=== PATIENT | female | born 1980 | race Asian ===

== ENCOUNTER 2018-03-16 13:46 | Emergency (ER) | payer MEDICAID ==
[~2018-03-16] VITALS: Ht 165.1 cm; Wt 57.6 kg
[2018-03-16 14:06] VITALS: Ht 165.1 cm; Wt 57.6 kg
[2018-03-16 16:42] VITALS: BP 108/79
== END 2018-03-16 16:42 | disposition home or self-care (01) ==
LOC: ED 13:46
DX: M79.671 Pain in right foot (principal)

== ENCOUNTER 2018-06-12 17:14 | Inpatient (IN) | payer MEDICAID ==
[~2018-06-12] VITALS: Ht 152.4 cm; Wt 55.8 kg
[2018-06-12 17:16] VITALS: Ht 152.4 cm; Wt 55.8 kg
--- NOTE | 2018-06-12 17:31 | NUR ---
MSE PERFORMED BY DR CONNELL. PT AT BEDSIDE. PT SPEAKS ONLY PERUVIAN-MANDARIN AND STS SHE DISCOVERED CYST TO L SIDE VAGINA AREA YESTERDAY AND STS SHE MEASURED A TEMP OF 38.0 CELSIUS AT HOME. PT REPORTS SYMPTOMS ONLY DISCOVERED YESTERDAY AND HAS SEVERE PAIN WHEN WALKING D/T CYST TO VAG AREA.
[2018-06-12 17:47] LABS: BASOPHIL % 0.2 % (0-2); PLATELET COUNT 337 x10^3mcL (130-400); RED CELL DISTRIBUTION WIDTH 12.1 % (11.5-14.5)
--- NOTE | 2018-06-12 18:00 | NUR ---
PT STS UNABLE TO PROVIDE URINE SAMPLE AT THIS TIME
--- NOTE | 2018-06-12 18:00 | NUR ---
CHAPERONED DR CONNELL DURING EXAM.
[2018-06-12 18:01] LABS: CALCIUM 8.6 mg/dL (8.5-10.1); CARBON DIOXIDE 28.6 mmol/L (21-32); CHLORIDE SERUM 102 mmol/L (98-107); CREATININE SERUM 0.6 mg/dL (0.6-1.0); GFR1 > 60 mL/min; GLUCOSE SERUM 130 mg/dL (74-106); POTASSIUM SERUM 3.1 mmol/L (3.5-5.1); SODIUM SERUM 136 mmol/L (136-145)
[2018-06-12 18:07] LABS: ALBUMIN 3.6 g/dL (3.4-5.0); ALKALINE PHOSPHATASE 143 U/L (46-116); ALT/SGPT 105 U/L (14-59); AST/SGOT 92 U/L (15-37); BILIRUBIN TOTAL 0.57 mg/dL (0.20-1.00); LIPASE 82 IU/L (73-393); TOTAL PROTEIN, SERUM 7.7 g/dL (6.4-8.2)
--- NOTE | 2018-06-12 18:27 | NUR ---
UNABLE TO LOCATE WORD CATH IN ER PYXIS. INFORMED CHARGE MARVIN AND KEYSHA POWELL OF SAME. HOUSE SUP STATES WILL CALL BACK AFTER ATTEMPTING TO FIND ITEM IN [facility]
--- NOTE | 2018-06-12 19:15 | NUR ---
PT HR 120 ON CM AND CONFIRMED WITH APICAL AUSCULTATION. DR CONNELL AWARE AND AT BEDSIDE FOR RE EVAL. HOLD ON KETAMINE DRIP AT THIS TIME
[2018-06-12 19:16] LABS: UA SPECIFIC GRAVITY <=1.005 (1.005-1.035); microscopic required? YES; urine erythrocyte TRACE (NEGATIVE)
--- NOTE | 2018-06-12 19:25 | NUR ---
ATTEMPTING TO PERFORM EKG. PT UNABLE TO REMAIN STILL
--- NOTE | 2018-06-12 19:30 | NUR ---
RECEIVED REPORT FROM JULISSA VILLAGOMEZ AND ASSUMED CARE OF PATIENT. PT. LAYING ON GURNEY. AGITATED AND C/O CHILLS AND FLANK PAIN. DR. CONNELL AT BEDSIDE. ONE LITER OF NS STARTED PER VERBAL ORDERS. WILL CONTINUE TO MONITOR.
--- NOTE | 2018-06-12 19:30 | NUR ---
REPORT GIVEN TO FERNANDO TO ASSUME CARE
--- NOTE | 2018-06-12 19:31 | NUR ---
TYLENOL PO GIVEN, PT. HAD ONE EPISODE OF EMESIS. AFTER TYLENOL GIVEN. DR CONNELL MADE AWARE.
--- NOTE | 2018-06-12 19:32 | NUR ---
SECOND ATTEMPT EKG, PT STILL UNABLE TO REMAIN STILL DESPITE DIRECTION.
--- NOTE | 2018-06-12 19:35 | NUR ---
RECTAL TEMP CHECKED TWICE. INFORMED DR CONNELL OF [facility]
--- NOTE | 2018-06-12 19:36 | NUR ---
DR CONNELL AWARE OF PT HAVING BODY PAIN AND BL FLANK PAIN.
--- NOTE | 2018-06-12 19:45 | NUR ---
PER DR CONNELL TREAT PT FOR POSS MALIGNANT HYPERTHERMIA. DANTROLENE SODIUM BOTTLES OBTAINED FROM OR BY MARVIN LYLE. MYA RADIOLOGY RECEPTIONIST AT BEDSIDE FOR ASSISTANCE
--- NOTE | 2018-06-12 19:46 | NUR ---
INFORMED PT OF POSSIBLE INCR IN FEVER D/T REACTION TO LIDOCAINE ADM. PT AWARE AND VERBALIZED UNDERSTANDING. INFORMED PT OF NEED FOR TREATMENTS
--- NOTE | 2018-06-12 19:50 | NUR ---
ICE PACKS PLACED TO BILATERAL AXILLA AND GROIN AREA.
--- NOTE | 2018-06-12 19:50 | NUR ---
650MG OF TYLENOL GIVEN RECTAL PER DR. CONNELL.
--- NOTE | 2018-06-12 20:00 | NUR ---
COLD BAG OF NS BOLUS STARTED PER DR. CONNELL. PT. TOLERATING WELL
--- NOTE | 2018-06-12 20:01 | NUR ---
LITER OF NS GIVEN BOLUS PER DR. CONNELL.
--- NOTE | 2018-06-12 20:03 | NUR ---
FIRST VIAL DANTROLENE SODIUM 20MG IVP GIVEN RAPID IV PUSH. PT ON FULL MONITORS. REMAINS FULLY AAOX4
--- NOTE | 2018-06-12 20:18 | NUR ---
COOLING BLANKET SET UP FOR PT FOR HIGH TEMPERATURE
--- NOTE | 2018-06-12 20:33 | NUR ---
RAPID BOLUS OF 120MG DANTRIUM GIVEN IVP. INFORMED DR CONNELL OF SAME. RECTAL TEMP NOW 103.5. PER DR CONNELL GIVE DANTRIUM 50MG/KG IVP UNTIL ALLEVIATION OF MH S/S.
--- NOTE | 2018-06-12 20:55 | NUR ---
DANTRIUM 50MG IVP BOLUS INFUSED. RECTAL TEMP NOW 101.9
--- NOTE | 2018-06-12 20:55 | NUR ---
DR CONNELL AWARE OF CURRENT RECTAL TEMP 101.9
--- NOTE | 2018-06-12 21:00 | NUR ---
SECOND BAG OF COLD NS BOLUS STARTED PER DR. CONNELL. PT. TOLERATING WELL.
--- NOTE | 2018-06-12 21:01 | NUR ---
NS LITER GIVEN WIDE OPEN, PER DR. CONNELL.
--- NOTE | 2018-06-12 21:23 | NUR ---
REPORT GIVEN TO MICHAEL GRANGER RN
--- NOTE | 2018-06-12 21:25 | NUR ---
RESIDENT DOT AT BEDSIDE SPEAKING TO PT WITH MY TRANSLATION ASSISTANCE
--- NOTE | 2018-06-12 21:38 | NUR ---
DR CONNELL SPOKE WITH REGARDING POC AND ADMISSION TO ICU FOR MALIGNANT HYPERTHERMIA WITH MY TRANSLATION ASSISTANCE. AWARE OF COOLING MEASURE TREATMENTS
[2018-06-12 21:39] LABS: PLATELET COUNT 165 x10^3mcL (130-400); RED CELL DISTRIBUTION WIDTH 12.2 % (11.5-14.5)
--- NOTE | 2018-06-12 21:45 | NUR ---
50MG OF DANTROLENE IVP GIVEN PER DR. CONNELL VERBAL ORDERS.
--- NOTE | 2018-06-12 21:49 | NUR ---
PER PT SEEMS CONFUSED AND ONLY STATING "I WANT TO GO HOME. I'M TOO COLD." INFORMED DR CONNELL OF SAME. PT REMAINS TO HAVE AN ACTIVE DEC IN TEMPERATURE AND HR.
--- NOTE | 2018-06-12 21:50 | NUR ---
ATTEMPTED TO ASK PT ORIENTATION QUESTIONS, PT ONLY STS TO ME "I'M COLD, AND I WANT TO GO HOME."
--- NOTE | 2018-06-12 21:55 | NUR ---
EXPLAINED TO PT'S WITH DR CONNELL AT BEDSIDE AND INFORMED HIM THAT PT'S CONFUSION IS POSSIBLY PART OF DISEASE PROCESS.
--- NOTE | 2018-06-12 21:56 | NUR ---
DR. BLACKMON MADE AWARE OF PTS WBC OF 1.2, NO NEW ORDERS AT THIS TIME.
[2018-06-12 21:59] LABS: ALKALINE PHOSPHATASE 247 U/L (46-116); ALT/SGPT 125 U/L (14-59); AST/SGOT 130 U/L (15-37); BILIRUBIN TOTAL 1.1 mg/dL (0.20-1.00); CALCIUM 7.1 mg/dL (8.5-10.1); CARBON DIOXIDE 21.7 mmol/L (21-32); CHLORIDE SERUM 108 mmol/L (98-107); CREATININE SERUM 0.5 mg/dL (0.6-1.0); GFR1 > 60 mL/min; GLUCOSE SERUM 119 mg/dL (74-106); LIPASE 99 IU/L (73-393); POTASSIUM SERUM 3.9 mmol/L (3.5-5.1); SODIUM SERUM 140 mmol/L (136-145); TOTAL PROTEIN, SERUM 6.2 g/dL (6.4-8.2)
--- NOTE | 2018-06-12 22:00 | NUR ---
EKG ATTEMPTED MULTIPLE TIMES BY EMT PEPE. PT. UNABLE TO STAY STILL TO HAVE ACCURATE READING DONE. DR. CONNELL MADE AWARE.
[2018-06-12 22:03] LABS: ALBUMIN 2.8 g/dL (3.4-5.0)
[2018-06-12 22:08] LABS: BAND NEUTROPHIL 0 % (0-10); BASOPHIL 0 % (0-2); MONOCYTE 1 % (0-7); PLATELET MORPHOLOGY PLATELETS NORMAL; SEGMENTED NEUTROPHILS 16 % (37-75); rbc morphology (normal/abnorm) NORMAL (NORMAL)
--- NOTE | 2018-06-12 22:10 | NUR ---
EMPTIED 2000ML OF CLEAR YELLOW URINE FROM GRACE CATHETER.
--- NOTE | 2018-06-12 22:15 | NUR ---
PT TRANSFERRED FROM ER VIA [facility] ACCOMPANIED BY RN AND EMT. PT APPEARS LETHARGIC, UNABLE TO FOLLOW COMMANDS. PT DROWSY BUT EASILY AROUSABLE. SPEECH SLOW TO ANSWER. BRITTANY NOTED. PT AND AT BEDSIDE MANDARIN SPEAKING, KARLIE RN AT BEDSIDE TO TRANSLATE. CARMELITA IN PLACE FOR COOLING. VITAL SIGNS UPON ARRIVAL RECTAL TEMP 100.9, BP 140/91 MAP 102, HR 113, RR 15, O2 SAT 100%. RESPS E/U ON O2 2LPM VIA NC. CHEST RISE EQUAL AND SYMMETRICAL. LUNG SOUNDS CTA. PAYROLL LEAD IN PLACE SHOWING ST. DENIES ANY CP, SYNCOPE, OR DIZZINESS. CHEST WALL STABLE. ABD FLAT, SOFT NONTENDER TO TOUCH. BOWEL SOUNDS ACTIVE. F/C INTACT AND DRAINING VIA GRAVITY YELLOW URINE, VOIDING ADEQUATELY. SKIN WARM DRY TO TOUCH. VAGINAL AREA GOLF BALL SIZED LEFT LABIAL BARTHOLIN GLAND ABSCESS NOTED, NO DRAINAGE, NO BLEEDING NOTED TO AREA. IV TO LAC AND RAC INTACT AND PATENT. LR INFUSING @ 250ML/HR. 1ST DOSE OF ZOSYN INITIATED AT THIS TIME PER MD ORDER. GEN WEAKNESS NOTED. REQUIRES MODERATE ASSISTANCE FOR BED MOBILITY. CALL LIGHT WITHIN REACH. WILL CONTINUE TO MONITOR.
--- NOTE | 2018-06-12 22:15 | NUR ---
JULISSA VILLAGOMEZ SPOKE TO MICHAEL VILLAGOMEZ AND STATES ZOSYN AND VANCO WILL BE STARTED TO ICU. DR. CONNELL MADE AWARE AND AGREED WITH PLAN TO HAVE PT. TRANSFERED TO ICU NOW.
--- NOTE | 2018-06-12 22:15 | NUR ---
PT TRANSFERRED FROM ER VIA [facility] ACCOMPANIED BY RN AND EMT. PT APPEARS LETHARGIC, UNABLE TO FOLLOW COMMANDS. PT DROWSY BUT EASILY AROUSABLE. SPEECH SLOW TO ANSWER. BRITTANY NOTED. PT AND AT BEDSIDE MANDARIN SPEAKING, KARLIE RN AT BEDSIDE TO TRANSLATE. CARMELITA IN PLACE FOR COOLING. VITAL SIGNS UPON ARRIVAL RECTAL TEMP 100.9, BP 140/91 MAP 102, HR 113, RR 15, O2 SAT 100%. RESPS E/U ON O2 2LPM VIA NC. CHEST RISE EQUAL AND SYMMETRICAL. LUNG SOUNDS CTA. AOC PLANS INTELLIGENCE OFFICER IN PLACE SHOWING ST. DENIES ANY CP, SYNCOPE, OR DIZZINESS. CHEST WALL STABLE. ABD FLAT, SOFT NONTENDER TO TOUCH. BOWEL SOUNDS ACTIVE. F/C INTACT AND DRAINING VIA GRAVITY YELLOW URINE, VOIDING ADEQUATELY. SKIN WARM DRY TO TOUCH. VAGINAL AREA GOLF BALL SIZED LEFT LABIAL BARTHOLIAN CYST NOTED, NO DRAINAGE, NO BLEEDING NOTED TO AREA. IV TO LAC AND RAC INTACT AND PATENT. LR INFUSING @ 250ML/HR. 1ST DOSE OF ZOSYN INITIATED AT THIS TIME PER MD ORDER. GEN WEAKNESS NOTED. REQUIRES MODERATE ASSISTANCE FOR BED MOBILITY. CALL LIGHT WITHIN REACH. WILL CONTINUE TO MONITOR.
--- NOTE | 2018-06-12 22:20 | NUR ---
PT. TRANSFERED TO ICU RM 5. MICHAEL VILLAGOMEZ ASSUMED CARE OF PATIENT.
[2018-06-12 22:33] VITALS: BP 140/91
--- NOTE | 2018-06-12 22:35 | NUR ---
DR. MIN AT BEDSIDE WITH KARLIE, REGISTERED NURSE SPEAKING WITH FAMILY TO ASSIST TO TRANSLATE AND OBTAIN INFORMATION ON PT AND PLAN OF CARE.
[2018-06-12 22:41] LABS: MAGNESIUM 1.5 mg/dL (1.8-2.4); PHOSPHOROUS 1.5 mg/dL (2.5-4.9)
--- NOTE | 2018-06-12 23:15 | NUR ---
BP 75/46 MAP 59, DR BLACKMON AT BEDSIDE MADE AWARE. REMOVED COOLING BLANKET AT THIS TIME. RECTAL TEMP 100.1 TRENDING DOWN.
--- NOTE | 2018-06-12 23:45 | NUR ---
BP 75/50 MAP 58, REPORTED TO DR BLACKMON BP WITH NO IMPROVMENT, PT PLACED IN [place] POSITION. VERBAL ORDER GIVEN BY DR BLACKMON TO GIVE 1 L NS BOLUS. INFUSING AT THIS TIME.
[2018-06-13] VITALS (7 sets, daily range): BP systolic 80–128; BP diastolic 57–74
--- NOTE | 2018-06-13 01:12 | NUR ---
BP 70/51 MAP 58, 1L BOLUS COMPLETE. REPORTED TO DR BLACKMON, VERBAL ORDER GIVEN TO GIVE ANOTHER X1 BOLUS NOW. 1L NS BOLUS INFUSING AT THIS TIME. WILL CONTINUE TO MONITOR.
--- NOTE | 2018-06-13 02:30 | NUR ---
LACTIC ACID 3.7 AND LOW BP AFTER 2L BOLUS COMPLETED REPORTED TO DR BLACKMON. ORDER FOR GIVEN FOR ANOTHER 1L NS BOLUS. INFUSING AT THIS TIME. LUNG SOUNDS CTA. NO EDEMA NOTED.
--- NOTE | 2018-06-13 02:43 | NUR ---
DR. MIN MADE AWARE OF PT'S CRITICAL LAB LACTIC ACID VALUE OF 3.7, DR. MIN AT NURSING STATION, AWAITING ORDERS.
[2018-06-13 05:28] LABS: RED CELL DISTRIBUTION WIDTH 12.3 % (11.5-14.5)
[2018-06-13 05:36] LABS: PLATELET COUNT 118 x10^3mcL (130-400)
[2018-06-13 05:42] LABS: BAND NEUTROPHIL 11 % (0-10); CHLORIDE SERUM 111 mmol/L (98-107); CREATININE SERUM 0.6 mg/dL (0.6-1.0); GFR1 > 60 mL/min; GLUCOSE SERUM 83 mg/dL (74-106); MAGNESIUM 2.2 mg/dL (1.8-2.4); MONOCYTE 1 % (0-7); PHOSPHOROUS 3.3 mg/dL (2.5-4.9); POTASSIUM SERUM 4.1 mmol/L (3.5-5.1); SEGMENTED NEUTROPHILS 86 % (37-75); SODIUM SERUM 142 mmol/L (136-145)
[2018-06-13 05:45] LABS: PLATELET MORPHOLOGY PLATELETS DECREASED; acanthocyte (spur cell) 1+; rbc morphology (normal/abnorm) ABNORMAL (NORMAL)
--- NOTE | 2018-06-13 06:05 | NUR ---
AM CARE PROVIDED, NO BM NOTED LINENS CHANGED. PT REMAINS FLACCID. OPENS EYES TO TACTILE STIMULI. WITHDRAWS TO PAIN. PERRLA NOTED.
--- NOTE | 2018-06-13 07:16 | NUR ---
REPORT GIVEN BY HERNANDO RODRIGUEZ. ALL QUESTIONS ANSWERED.
--- NOTE | 2018-06-13 07:25 | NUR ---
PAGED REGARDING LACTIC ACID OF 3.0
--- NOTE | 2018-06-13 07:34 | NUR ---
RECEIVED PT'S REPORT FROM LEAVING NURSE. PT'S AT BEDSIDE. US STAFF IS DOING US ABD. PT PRESENT LETHARGIC, NO VERBAL RESPONSE TO AUDITORY STIMULI. BODY WITHDRAWN TO TACTITLE STIMULI. PT BREATHING ON O2 2L VIA NC, EVEN, UNLABORED. GRACE IN PLACE, DRAINING FREELY VIA GRAVITY. URINE COLOR YELLOW. IVF NS INFUSING AT 250ML/HR. EXPLAIN PT'S CONDITION TO HER .
--- NOTE | 2018-06-13 07:38 | NUR ---
REPORT GIVEN TO KYA, ALL QUESTIONS ANSWERED.
--- NOTE | 2018-06-13 08:42 | NUR ---
PT DROWSY, NO EYES OPEN, BUT VERBALLY COMMUNICATED AND SAID SHE IS THIRTY AND WANT TO DRINK WATER.
--- NOTE | 2018-06-13 09:19 | NUR ---
DR. SEVILLA SAW AND TALKED TO PT. PT IS DROWSY BUT ABLE TO ANSWER QUESTIONS SLOWLY. IVF IS REDUCED FROM 250ML/HR TO 200ML/HR PER DR. SEVILLA'S ORDER. INCENTIVE SPIROMETER PROVIDED.
--- NOTE | 2018-06-13 09:37 | NUR ---
DR. ARMAS MADE MORNING ROUND WITH MEDICAL TEAM. PT STILL PRESENT DROWSY, HOWEVER PT IS ABLE TO ANSWER QUESTIONS SLOWLY APPROPRIATELY. WILL CONTINUE CARE PER ORDER.
--- NOTE | 2018-06-13 09:50 | NUR ---
REPORT GIVEN TO CT HERNANDO VAIL, ALL QUESTIONS AND CONCERNS ADDRESSED. PRIMARY RN LING WITH PATIENT TO CT. PT ON CAFE SERVER AND ON 2L NC. PT TAKEN TO CT WITHOUT INCIDENT.
--- NOTE | 2018-06-13 10:30 | NUR ---
ACCOMPANIED PATIENT TO CT FOR IV CONTRAST SCAN OF ABDOMEN AND PELVIS, TRANSPORTED VIA BED, 02 ON AT 2L/NC CONTINUOUSLY, SCOPE NSR 80S EN ROUTE AND DURING SCAN TIME. VERY LETHARGIC. 4 PERSON ASSIST TO TRANSFER USING SLIDER BOARD TO TABLE AND BACK TO BED. PE40=60-55% DURING TRANSPORT AND SCAN TIME. PATIENT'S NURSE ACCOMPANIED AND ASSISTED WITH TRANSLATION. PER PATIENT'S NURSE THERE IS A LABIAL LESION AND CT TECHS NOTIFIED SO THEY WOULD SCAN BELOW PELVIC FLOOR. RETURNED TO ICU UNEVENTFULLY.
--- NOTE | 2018-06-13 10:35 | NUR ---
PT IS BACK FROM CT W. CONTRAST. PT TOLERATE WELL, AND ABLE TO FOLLOW COMMAND. PT'S VS: HR 81, RR26, BP 95/61 (74), TEMP 98.5, O2 SAT 99% AT O2 2L VIA NC.
--- NOTE | 2018-06-13 12:39 | NUR ---
CALLED RADIOLOGY AT THIS TIME REGARDING PENDING CT ABD RESULTS. PER RADIOLOGY DEPARTMENT, WILL BE READ SOON.
--- NOTE | 2018-06-13 13:44 | NUR ---
NOTIFIED OF BLOOD CULTURE RESULTS AND PER DR.SANDHU GABRIELLA GIL AND JESUS.
--- NOTE | 2018-06-13 16:07 | NUR ---
Discount pharmacy card and list to low cost medical clinics given to patient by Tonio.
--- NOTE | 2018-06-13 19:25 | NUR ---
RECEIVED REPORT FROM KYA VILLAGOMEZ. WILL CONTINUE TREATMENT AND CARE PLAN.
--- NOTE | 2018-06-13 20:30 | NUR ---
PT C/O 4/10 L LABIA PAIN AND HAS TEMP OF 99.5. GIVEN TYLENOL 650MG PO. COOLING MEASURES IN PLACE.
--- NOTE | 2018-06-13 23:06 | NUR ---
PT PUT ON BEDPAN AND HAD LARGE SOFT BM. PT CLEANED AND REPOSITIONED FOR COMFORT. NO PAIN AT THIS TIME.
--- NOTE | 2018-06-14 | NUR ---
PT IS NOW NPO AT THIS TIME FOR POSSIBLE PROCEDURE THIS AM.
[2018-06-14 03:07] VITALS: BP 93/54
--- NOTE | 2018-06-14 03:07 | NUR ---
ASSESSED PT. PT STATES NO PAIN AT THIS TIME. PT TEMP NOW 98.5. BREATHING EVEN AND UNLABORED. LUNG SOUNDS CLEAR. NO N/V NOTED. WILL CONTINUE TO MONITOR.
[2018-06-14 05:16] LABS: PLATELET COUNT 149 x10^3mcL (130-400); RED CELL DISTRIBUTION WIDTH 12.9 % (11.5-14.5)
[2018-06-14 05:23] LABS: BASOPHIL % 0 % (0-2)
[2018-06-14 05:28] LABS: CALCIUM 7.8 mg/dL (8.5-10.1); CARBON DIOXIDE 17.4 mmol/L (21-32); CHLORIDE SERUM 108 mmol/L (98-107); CREATININE SERUM 0.3 mg/dL (0.6-1.0); GFR1 > 60 mL/min; GLUCOSE SERUM 112 mg/dL (74-106); MAGNESIUM 1.9 mg/dL (1.8-2.4); PHOSPHOROUS 1.9 mg/dL (2.5-4.9); POTASSIUM SERUM 4.7 mmol/L (3.5-5.1); SODIUM SERUM 136 mmol/L (136-145)
--- NOTE | 2018-06-14 05:40 | NUR ---
THROUGHOUT SHIFT PT RECEIVED TYLENOL X 1 FOR TEMP AND MILD PAIN. NO PAIN AND DISCOMFORT NOTED OTHERWISE. BREATHING EVEN AND UNLABORED. PT ON NC AT 1L. LINENS CHANGED AND PT ASSISTED WITH BED BATH AND GRACE CARE. PT ABLE TO TURN AND REPOSITION SELF. PT NPO AT THIS TIME FOR POSSIBLE PROCEDURE THIS AM. ALL NEEDS MET AND ANTICIPATED. BED IN LOW POSITION. CALL LIGHT WITHIN REACH. WILL ENDORSE TO ONCOMING NURSE.
--- NOTE | 2018-06-14 07:24 | NUR ---
REPORT GIVEN TO MIN RN. ALL QUESTIONS AND CONCERNS ADDRESSED.
[2018-06-14 07:58] VITALS: BP 95/61
--- NOTE | 2018-06-14 09:34 | NUR ---
DR. SANCHEZ EXPLAINED INDICATION, RISKS AND BENITIFITS OF LAP CHOL TO PT AND , MIN RN TRANSLATED IN MANDERIN. DR. LUO EXPLAINED STEPS OF PROCEDURE TO PT'S . PT'S AND VERBALIZED UNDERSTANDING AND IN AGREEMENT TO PROCEDURE. PT'S AND QUESTIONS WERE ADDRESSED.
--- NOTE | 2018-06-14 10:00 | NUR ---
REPORT GIVEN TO VICE PRESIDENT OF RECRUITINGHERNANDO FORREST AT THIS TIME, ALL QUESTIONS AND CONCERNS ADDRESSED AT THIS TIME. PT TO GO TO OR IN AFTERNOON.
--- NOTE | 2018-06-14 10:36 | NUR ---
CAMILLE WIPE PROVIDED TO ABD AND CHEST AND BLE.
--- NOTE | 2018-06-14 10:39 | NUR ---
OR'S RN AT BEDSIDE TO TAKE PT TO OR FOR PROCEDUER X2 BY BED WITH PORTABLE OXYGEN.
--- NOTE | 2018-06-14 13:55 | NUR ---
RECEIVED REPORT FROM DIRECTOR RELIGIOUS EDUCATIONHERNANDO FORREST. ALL QUESTIONS AND CONCERNS ADDRESSED AT THIS TIME. PRIMARY RN VIKTORIYA AWARE. WILL CONTINUE TO MONITOR PT.
--- NOTE | 2018-06-14 14:03 | NUR ---
PT ARRIVES BACK INTO DEPARTMENT. NO INCIDENT OCCURED. PT ON ADMINISTRATIVE FELLOW. PT DENIES NEEDS.
--- NOTE | 2018-06-14 14:06 | NUR ---
PT IS BACK FROM OR, BAND AID TO ABD X4 HAS SMALL STAIN TO BAND AID, NO SIGNS OF ACTIVE BLEEDING. DRESSING TO L LABIA IS CDI. PT IS RECIEVING 1LO2 VIA NASAL CANNULA. PT IS ABLE TO REPSONSE TO VERBAL STIMULIS AND FOLLOW VERBAL COMMANDS. PT DENIES ANY PAIN. BED AT LOWEST POSITION AND CALL LIGHT WITHIN REACH.
[2018-06-14 15:15] VITALS: BP 94/59
--- NOTE | 2018-06-14 16:05 | NUR ---
CALLED, UPDATES PROVIDED. PER DR.SANDHU COOPER LEE IF PATIENT RECEIVING MERREM, ORDERS FOLLOWED AT THIS TIME.
--- NOTE | 2018-06-14 19:15 | NUR ---
RECEIVED REPORT FROM VIKTORIYA RN FOR CONTINUITY OF CARE. ALL QUESTIONS AND CONCERNS ADDRESSED. PT IS RESTING IN BED WITH EVEN CHEST RISE. ASSESSMENT TO FOLLOW.
[2018-06-14 19:42] VITALS: BP 109/72
--- NOTE | 2018-06-14 21:07 | NUR ---
PT HAD AN EPISODE OF VOMITING. WILL MEDICATE PER E-MAR.
--- NOTE | 2018-06-14 21:52 | NUR ---
PT VOIDED VIA BEDPAN. 400 ML OUTPUT.
[2018-06-14 23:33] VITALS: BP 108/73
--- NOTE | 2018-06-15 03:15 | NUR ---
PT VOIDED VIA BEDPAN. 600 ML OUTPUT. PT CLEANED, LINENS CHANGED.
[2018-06-15 03:18] VITALS: BP 112/80
[2018-06-15 05:12] LABS: PLATELET COUNT 172 x10^3mcL (130-400); RED CELL DISTRIBUTION WIDTH 12.2 % (11.5-14.5)
[2018-06-15 05:28] LABS: CALCIUM 7.8 mg/dL (8.5-10.1); CARBON DIOXIDE 25.5 mmol/L (21-32); CHLORIDE SERUM 110 mmol/L (98-107); CREATININE SERUM 0.4 mg/dL (0.6-1.0); GFR1 > 60 mL/min; GLUCOSE SERUM 136 mg/dL (74-106); POTASSIUM SERUM 3.2 mmol/L (3.5-5.1); SODIUM SERUM 140 mmol/L (136-145)
[2018-06-15 05:38] LABS: BASOPHIL % 0 % (0-2)
--- NOTE | 2018-06-15 06:22 | NUR ---
DR. RUIZ MADE AWARE OF ABNORMAL LABS. K+: 3.2, PHOS: 2.0, WBC: 27.2.
--- NOTE | 2018-06-15 06:44 | NUR ---
DR. DURHAM ORDERED PT TO BE NPO DUE TO N/V
--- NOTE | 2018-06-15 07:15 | NUR ---
REPORT GIVEN TO HERNANDO PIRES FOR CONTINUITY OF CARE. ALL QUESTIONS AND CONCERNS ADDRESSED.
--- NOTE | 2018-06-15 07:30 | NUR ---
RECIEVED REPORT FROM HERNANDO DAVIES TO ASSUME ALL CARES. ALL QUESTIONS AND CONCERNS ADDRESSED.
[2018-06-15 07:38] VITALS: BP 112/52
[2018-06-15 09:04] LABS: BILIRUBIN DIRECT 0.16 mg/dL (0.0-0.2); BILIRUBIN TOTAL 0.4 mg/dL (0.20-1.00)
[2018-06-15 09:18] LABS: ALBUMIN 1.9 g/dL (3.4-5.0); TOTAL PROTEIN, SERUM 5.3 g/dL (6.4-8.2)
[2018-06-15 11:31] VITALS: BP 116/73
--- NOTE | 2018-06-15 12:25 | NUR ---
REPORT GIVEN TO LOU RN TO ASSUME ALL CARES UPON TRANSFER. ALL QUESTIONS AND CONCERNS ADDRESSED.
--- NOTE | 2018-06-15 13:03 | NUR ---
PATIENT TRANSFERRED TO [facility] VIA WHEELCHAIR ACCOPANIED BY NURSE. NO INCIDENCE OCCURRED.
--- NOTE | 2018-06-15 13:08 | NUR ---
RECEIVED THIS 37 Y/O FEMALE TRANSFER FROM ICU S/P LAP JAE POD#1. ASLEEP BUT AWAKEN WHEN HER FRIEND ARRIVED. SPEAKS MANDARIN ONLY. ABLE TO FOLLOW SIMPLE COMMANDS. ALFONSO. APPEARS COHERENT. D5 1/2 INFUSING AT 50CC/HR RAC VIA PUMP. SITE WNL.NOT IN ANY DISTRESS. POSITIVE BOWEL SOUNDS ALL QUADS. ABDOMEN SOFT FLAT AND NOTED LAP SITES DRY AND INTACT. CALL CHATTERJEE WITH IN REACH. BED LOW LOCKED.
--- NOTE | 2018-06-15 14:00 | NUR ---
COMPLAINED OF NAUSEA. GIVEN ROUTINE ORDER OF REGLAN. NO VOMITING NOTED.
--- NOTE | 2018-06-15 15:25 | NUR ---
IN BED RESTING. REQUESTED TO LOWER HEAD OF BED. NOT IN ANY DISTRESS.
--- NOTE | 2018-06-15 17:30 | NUR ---
VANCO THOUGH 12.4 RELAYED TO PHARMACIST MARIO AT 1724. TO RESUME VANCOCIN.
[2018-06-15 17:51] VITALS: BP 108/79
--- NOTE | 2018-06-15 20:44 | NUR ---
PT CURRENTLY RESTING IN BED, NO ACUTE DISTRESS. A/O X4. TELE #30 SHOWING SINUS RHYTHM, NO S/S OF CHEST PAIN NOTED. PULSES PALPABLE IN ALL EXTREMITIES, NO EDEMA NOTED. LUNG SOUNDS CTA BILATERALLY, NO RESPIRATORY DISTRESS NOTED. BOWEL SOUNDS HYPOACTIVE. VOIDING WELL. GENERALIZED WEAKNESS. ABD INCISION X3, BANDAIDS CDI. IV PATENT AND INTACT. BED IN LOWEST POSITION, SIDE RAILS UP X2, CALL LIGHT WITHIN REACH. WILL CONTINUE TO MONITOR.
[2018-06-15 21:24] VITALS: BP 120/82
--- NOTE | 2018-06-16 00:52 | NUR ---
PT CURRENTLY RESTING IN BED, NO ACUTE DISTRESS. WILL CONTINUE TO MONITOR.
[2018-06-16 05:25] VITALS: BP 113/75
--- NOTE | 2018-06-16 06:10 | NUR ---
PT SLEPT PERIODICALLY THROUGHOUT NIGHT, NO ACUTE DISTRESS. ALL NEEDS MET AND ATTENDED TO. NO SIGNIFICANT CHANGES. IV IN RAC FOUND LEAKING, DC'D, CATHETER INTACT. BED IN LOWEST POSITION, SIDE RAILS UP X2, CALL LIGHT WITHIN REACH. WILL ENDORSE CARE TO ONCOMING NURSE.
[2018-06-16 06:20] LABS: PLATELET COUNT 153 x10^3mcL (130-400); RED CELL DISTRIBUTION WIDTH 12.4 % (11.5-14.5)
[2018-06-16 06:28] LABS: ALKALINE PHOSPHATASE 142 U/L (46-116); ALT/SGPT 52 U/L (14-59); AST/SGOT 27 U/L (15-37); BILIRUBIN DIRECT 0.16 mg/dL (0.0-0.2); BILIRUBIN TOTAL 0.31 mg/dL (0.20-1.00); CALCIUM 7.3 mg/dL (8.5-10.1); CARBON DIOXIDE 24.3 mmol/L (21-32); CHLORIDE SERUM 109 mmol/L (98-107); CREATININE SERUM 0.5 mg/dL (0.6-1.0); GFR1 > 60 mL/min; MAGNESIUM 1.9 mg/dL (1.8-2.4); PHOSPHOROUS 1.4 mg/dL (2.5-4.9); SODIUM SERUM 142 mmol/L (136-145)
[2018-06-16 06:58] LABS: GLUCOSE SERUM 102 mg/dL (74-106)
--- NOTE | 2018-06-16 07:20 | NUR ---
RECEIVED PATIENT AWAKE/ALERT IN BED , NO C/O PAIN. NO ACUTE DISTRESS. TELE #30 NOTED. IV TO LAC INTACT AND INFUSING WELL, POC EXPLAINED, CALL LIGHT IN REACH.
[2018-06-16 08:01] LABS: ALBUMIN 1.9 g/dL (3.4-5.0)
[2018-06-16 08:02] LABS: POTASSIUM SERUM 2.8 mmol/L (3.5-5.1)
--- NOTE | 2018-06-16 08:30 | NUR ---
NOTIFIED DR. RUIZ FOR K 2.8 PER WILL REPLACED.
[2018-06-16 09:19] VITALS: BP 113/74
--- NOTE | 2018-06-16 09:26 | NUR ---
PATIENT RESTING IN BED AWAKE. NO COMPLAIN. IV TO LAC INTACT NO ERYTHEMA NOTED. VANCOMYCIN IVPB INFUSING WELL. NEEDS MET. CALL LIGHT IN REACH.
--- NOTE | 2018-06-16 11:16 | NUR ---
PATIENT LAYING IN BED DID NOT AFFORD TO MOVES TO ASSISTING NURSE WITH WILFREDO CARE, REINA AND NATASHA ASSIST WITH TRANSLATE, ENC PATIENT TO GET OOB WITH MEALS, USES INCENTIVE SPIROMETER WHILE AWAKE. ASKING TO INVOLVE WITH CARE ENC PATIENT TO MOVE HERSELF IN BED AND TURN SIDE TO SIDE EVERY 2HRS. NORCO 1 TAB PO GIVEN FOR C/O PAIN 08/31 TO LABIA, WILFREDO PADS AND PANTY OFFERED, PER NATASHA APPLIED ICE TO LABIA PRN FOR SWOLLEN. CALL LIGHT IN REACH.
--- NOTE | 2018-06-16 11:34 | NUR ---
PER DR. RUIZ AND PHARMACY IS OKAY TO INFUSE K-RIDER 40MEQ W/ LIDOCAINE. PATIENT SITTING UP IN BED PO MED AND KRIDER INFUSING TO LAC IV PATENT. WILL CONT TO MONITOR.
--- NOTE | 2018-06-16 11:55 | NUR ---
PER CHARGE NURSE/PRIMARN REQUEST TO CHECK LEFT LABIA S/P I&D. AREA DRY AND CLEAN WITH 2 SMALL CUTS AND DRY SCABS FORMING TO LEFT LABIA, NO DISCHARGE, NO ODOR, SLIGHTLY SWELLING. PT WAS EDUCATED POST OP INTERVENTIONS,PT. VERBALIZES UNDERSTANDING.
--- NOTE | 2018-06-16 12:17 | NUR ---
PATIENT AWAKE/ALERT IN BED WORKING ON HER INCENTIVE SPIROMETER 500ML, NO COMPLAIN. KRIDER INFUSING FOR 30 MIN NO REACTION NOTED. CALL LIGHT IN REACH.
[2018-06-16 12:29] VITALS: BP 107/79
[2018-06-16 12:36] LABS: BAND NEUTROPHIL 16 % (0-10); BASOPHIL 0 % (0-2); MONOCYTE 3 % (0-7); SEGMENTED NEUTROPHILS 73 % (37-75)
[2018-06-16 12:37] LABS: PLATELET MORPHOLOGY LARGE PLATELET SEEN; rbc morphology (normal/abnorm) NORMAL (NORMAL)
--- NOTE | 2018-06-16 14:39 | NUR ---
PATIENT SLEEPING NO DISTRESS NOTED, MERREM IVPB INFUSING TO LAC, INTERRUPT KRIDER TO INFUSE ABX FOR 30 MIN. PATIENT AWAKEIN BED PT AT BEDSIDE WILL TRY TO WORK WITH PATIENT. PAIN IS 2/10.
--- NOTE | 2018-06-16 15:04 | NUR ---
PER PT PATIENT GET UP WITH MODERATE ASSIST, WALKING WITH WALKER TO BATHROOM AND BACK, REFUSED TO WORK MORE. WILL CONT WITH PT TOMORROW.
--- NOTE | 2018-06-16 16:56 | NUR ---
PATIENT RESTING IN BED AWAKE/ALERT, AT BEDSIDE. VANCOMYCIN IVPB INFUSING TO LAC IV PATENT. KRIDER STOP WILL RESUME WHEN IV ABX COMPLETED. NEEDS MET. CALL LIGHT IN REACH.
--- NOTE | 2018-06-16 17:37 | NUR ---
ASSISTING PATIENT SIT UP IN BED, DUE MEDS GIVEN. REMAIN AT BEDSIDE. CONT TO MONITOR.
[2018-06-16 17:56] VITALS: BP 113/78
[2018-06-16 19:52] VITALS: BP 109/73
--- NOTE | 2018-06-16 19:58 | NUR ---
PATIENT RECEIVED IN BED DURING BEDSIDE HANDS OFF WITH OUT GOING NURSE. PATIENT SLEEPING BUR EASILY AWAKEN WHEN NAME CALLED, POLISH SPEAKING BUT ABLE TO COMMUNICATE NEEDS BY GESTURING.NO RESP. DISTRESS BREATHING EVEN AND UNLABORED, BS CLEAR DIMINISHED BASES, FOUND ON ROOM AIR SAT 98%. DENIED CHEST PAINS, HR=64BPM, TELE#30 SR. IV SITE NO SIGN OF INFILTRATION. PATIENT WITH GENERALIZED WEAKNESS, NEEDS ANTICIPATED, ABLE TO PARTICIPATE WITH ADL'S. 06/14 S/P LAP/JAE AND I&D LEFT LABIA, LT LABIA SWOLLEN AND RED, ICED, ABDOMINAL SURGICAL INCISION WITH BAND AID, BM 06/15, PASSING GAS, DULL PAIN RATED AT 3/10 WILL MONITOR. PATIENT INFORMED ABOUT POC THIS SHIFT. SAFETY PRECAUTIONS MAINTAINED. WILL CONTINUE TO MONITOR.
[2018-06-16 21:10] VITALS: BP 111/72
--- NOTE | 2018-06-16 21:26 | NUR ---
SCHEDULED MEDS ADMINISTERED, ELEVATED BED ON SEMI FOWLERS DURING ADMINISTRATION, INFORMED ABOUT EACH MEDS ACTIONS AND PURPOSE. PATIENT TO9OK PILL WELL. COMPLAINED OF LEFT LABIA PAIN, MEDICATED PRN, AMDE COMFORTABLE IN BED. WILL MONITOR EFFECTIVENESS.
--- NOTE | 2018-06-16 22:49 | NUR ---
DR CORREA MADE AWARE ON THIS AM PHOS LEVEL1.4, AWAITING ORDER.
--- NOTE | 2018-06-16 23:31 | NUR ---
NEUTRA PHOS GIVEN FOR PHOS LEVEL OF 1.4 PER ORDERED. PATIENT IS COMFORTABLE THIS TIME,WAS ASSISTED TO THE BR ROOM TWICE WITH STEADY SLOW GAIT. DULL PAIN TO ABDOMEN AND LEF LABIA AT 3/10. IV SITE WAS LEAKING EARLIER, INSERTED TO LEFT HAND GAUGE 22 WITH DIFF. SAFETY MAINTAINED. WILL CONTINUE TO MONITOR.
--- NOTE | 2018-06-17 03:30 | NUR ---
SLEEPING COMFORTABLY, AMBULATORY TO THE BATHROOM WITHOUT ASSIST TO VOID, TOLERATED WELL WITH STEADY GAIT. AFEBRILE DURING THE SHIFT. IV SITE PATENT AND INTACT. SAFETY MAINTAINED. WILL CONTINUE TO MONITOR.
[2018-06-17 06:20] VITALS: BP 113/75
--- NOTE | 2018-06-17 06:30 | NUR ---
PATIENT SLEPT WELL AND RESTED GOOD DURING THE SHIFT,WAS MEDICATED X1 WITH NORCO FOR COMPLAINT OF ABDOMINAL PAIN AND LEF LABIA PAIN RECEIVED RELIEF. ICE APPLIED TO AREA FOR COMFORT. SAFETY PRECAUTIONS MAINTAINED. WILL ENDORSE CONTINUITY IOF CARE TO INCOMING NURSE.
--- NOTE | 2018-06-17 07:22 | NUR ---
BEDSIDE HANDS OFF AND INTRODUCTION PERFORMED WITH INCOMING NURSE JOY.
--- NOTE | 2018-06-17 07:45 | NUR ---
PATIENT RESTING IN BED, NO ACUTE DISTRESS NOTED. PATIENT IS MANDARIN SPEAKING, PATIENT ABLE TO MAKE NEEDS KNOW. TELE MONITOR IN PLACE, DENIES CHEST PAIN. PATIENT BOWEL SOUNDS HYPOACTIVE, PATIENT PASSING GAS. PATIENT ABLE TO AMBULATED TO BATHROOM WITH ASSIST. ABD INCISIONS X3 NOTED, COVERED WITH BAND AID , CDI, NO DRAINAGE NOTED. EDEMA AND REDNESS NOTED TO LEFT LABIA, ICE PACKS APPLIED. D5 1/2NS INFUSING TO LEFT HAND AT 50ML/HR, IV SITE CDI, NO REDNESS, SWELLING OR PAIN NOTED. CALL LIGHT WITHIN REACH, BED IN LOW POSITION. WILL CONTINUE TO MONITOR.
[2018-06-17 09:30] VITALS: BP 118/76
[2018-06-17 11:41] LABS: CALCIUM 7.9 mg/dL (8.5-10.1); CARBON DIOXIDE 23.9 mmol/L (21-32); CHLORIDE SERUM 103 mmol/L (98-107); CREATININE SERUM 0.5 mg/dL (0.6-1.0); GFR1 > 60 mL/min; GLUCOSE SERUM 121 mg/dL (74-106); SODIUM SERUM 137 mmol/L (136-145)
[2018-06-17 11:43] LABS: BASOPHIL % 0.2 % (0-2); PLATELET COUNT 178 x10^3mcL (130-400); RED CELL DISTRIBUTION WIDTH 12.3 % (11.5-14.5)
--- NOTE | 2018-06-17 12:10 | NUR ---
PATIENT C/O PAIN 08/31 TO ABD. AND LEFT LABIA. MEDICATED PATIENT WITH NORCO PER PROTOCOL (SEE EMAR), REPOSITION PATIENT TO SIDE, TURNED OFF PATIENTS LIGHTS. CALL LIGHT WITHIN REACH, BED IN LOW POSITION. WILL CONTINUE TO MONITOR PATIENT.
[2018-06-17 12:46] VITALS: BP 116/70
--- NOTE | 2018-06-17 13:30 | NUR ---
PATIENT EATING AT BEDSIDE. TOLERATING FOOD WELL. FAMILY AT BEDSIDE. PATIENT DENIES PAIN AT THIS TIME. NO ACUTE DISTRESS NOTED, PATIENT ON ROOM AIR. CALL LIGHT WITHIN REACH, BED IN LOW POSITION. WILL CONTINUE TO MONITOR.
--- NOTE | 2018-06-17 15:35 | NUR ---
PHYSICAL THERAPY DAILY NOTES CO-SIGN All documentation done by the [employer] Shift for 06/17/18 has been reviewed. I agree with the documentation. Reviewed/Co-Signed by: Carolyn Tavares PT Documentation Done by:ZAFAR MCWILLIAMS PTA
--- NOTE | 2018-06-17 17:30 | NUR ---
PATIENT C/O PAIN TO ABD 07/01, MEDICATED PATIENT WITH NORCO PER PROTOCOL (SEE EMAR). REPOSITION PATIENT AND TURNED OFF LIGHTS. CALL LIGHT WITHIN REACH, BED IN LOW POSITION, WILL CONTINUE TO MONITOR.
[2018-06-17 17:56] VITALS: BP 126/83
--- NOTE | 2018-06-17 18:48 | NUR ---
PATIENT IS RESTING I BED, WATCHING TV. NO ACUTE DISTRESS NOTED, PATIENT ON ROOM AIR. NO ACUTE CHANGES THROUGH OUT SHIFT, PATIENT IS STABLE. CALL LIGHT WITHIN REACH. WILL ENDORSE REPORT TO NIGHT NURSE.
--- NOTE | 2018-06-17 19:00 | NUR ---
RECEIVED PT FROM DAY SHIFT RN PT IS AA&O X 4 AND ABLE TO FOLLOW COMMANDS. PT IS MANDARIN SPEAKING AND ABLE TO COMMUNICATE WITH GESTURES. NO SIGNS OF CHEST PAIN OR SHORTNESS OF BREATH ON ROOM AIR. LUNG SOUNDS ARE CLEAR TO AUSCULTATION AND THERE IS NO USE OF ACCESSORY MUSCLES ON ASSESSMENT. ABDOMINAL SURGICAL INCISIONS NOTED X3 CDI. PT DENIES PAIN IN ABD AREA. INFLAMMATION OF THE LEFT LABIA MAJOR NOTED. ICE PACKS TO THE AFFECTED AREA ARE IN PLACE. SAFETY MEASURES ARE IN PLACE. CALL LIGHT IS WITHIN REACH. WILL CONTINUE TO MONITOR.
[2018-06-17 21:27] VITALS: BP 100/66
[2018-06-18 06:03] VITALS: BP 116/71
[2018-06-18 06:29] LABS: BASOPHIL % 0.3 % (0-2); PLATELET COUNT 229 x10^3mcL (130-400); RED CELL DISTRIBUTION WIDTH 12.4 % (11.5-14.5)
--- NOTE | 2018-06-18 06:39 | NUR ---
PT SLEPT THROUGHOUT THE NIGHT. NO SIGNS OF CHEST PAIN OR RESPIRATORY DISTRESS. WILL ENDORSE TO DAY SHIFT RN.
[2018-06-18 07:14] LABS: CARBON DIOXIDE 23.8 mmol/L (21-32); CHLORIDE SERUM 105 mmol/L (98-107); CREATININE SERUM 0.5 mg/dL (0.6-1.0); GFR1 > 60 mL/min; GLUCOSE SERUM 105 mg/dL (74-106); POTASSIUM SERUM 3.4 mmol/L (3.5-5.1); SODIUM SERUM 140 mmol/L (136-145)
--- NOTE | 2018-06-18 07:40 | NUR ---
PATIENT RESTING IN BED, NOT ACUTE DISTRESS NOTED. PATIENT STATES HER PAIN LEVEL IS 02/10, AND STATES SHE DOESNT NEED MEDICATION FOR PAIN. LUNG SOUNDS ARE CTA. PATIENT IS AMBULATORY, WITH SOME ASSISTANCE NEEDED. NO EDEMA NOTED TO LEFT LABIA. D5 1/2NS INFUSING TO LEFT HAND, IV SITE CDI, NO S/S OF INFILTRATION. CALL LIGHT WITHIN REACH, BED IN LOW POSITION, WILL CONTINUE TO MONITOR PATIENT.
[2018-06-18 09:48] VITALS: BP 111/72
--- NOTE | 2018-06-18 10:30 | NUR ---
PATIENT AMBULATING HALLWAYS, PHYSICAL THERAPY WORKING WITH PATIENT.
[2018-06-18] MEDS ORDERED: CIPROFLOXACIN500 MG PO (12:20)
[2018-06-18] MEDS ORDERED: MOT600 PO (12:21)
--- NOTE | 2018-06-18 13:20 | NUR ---
PATIENT RESTING IN BED, EATING LUNCH. PATIENT TOLERATING MEALS. PATIENT DENIES PAIN AT THIS TIME. NO ACUTE DISTRESS NOTED. CALL LIGHT WITHIN REACH, BED IN LOW POSITION FOR SAFETY PRECAUTION. WILL CONTINUE TO MONITOR FOR CHNAGES.
[2018-06-18 14:41] VITALS: BP 111/72
--- NOTE | 2018-06-18 15:56 | NUR ---
PATIENT WAS D/C HOME. PATIENT WAS TAKEN DOWN BY DIRECTOR FUNDRAISING VIA WHEELCHAIR. PATIENT RECEIVED COPY OF D/C INSTRUCTIONS AND D/C PRESCRIPTIONS. RN TARUN WAS ABLE TO TRANSLATE AND PROVIDE PATIENT WITH D/C INSTRUCTIONS, ALONG WITH MEDICATIONS AND FOLLOW UP CARE. PATIENTS STATED SHE IS UNABLE TO MAKE AN APPT TO GET HER SUTURES REMOVED, NOTIFIED DR RUIZ IF SHE COULD PLACE AN ORDER FOR PATIENT TO HAVE AN APPT MADE BY CASE MANAGEMENT FOR SUTURE REMOVAL. DR RUIZ STATED SHE WILL PLACE AN ORDER. PHOTO WERE TAKEN OF ABD, INCICSION ARE CDI, NO S/S OF INFECTION. PATIENT REFUSED PHOTO OF LEFT LABIA, LEFT LABIA SHOWED MILD REDNESS, NO EDMEA NOTED. PATIENT UNDERSTAND TO FOLLOW UP WITH PCP, AND SURGEON. ARMBANDS REMOVED, IV CATH REMOVED, CATH INTACT. ALL QUESTIONS AND CONCERNS ADDRESSED.
--- NOTE | 2018-06-20 16:45 | NUR ---
PHYSICAL THERAPY DAILY NOTES CO-SIGN All documentation done by the Car Construction Superintendent for 06/20/18 has been reviewed. I agree with the documentation. Reviewed/Co-Signed by: Daniel Quigley PT Documentation Done by:ALAINA JAVIER CUSTOMER ORDER CLERK FOR 06/18/2018
== END 2018-06-18 15:56 | disposition home or self-care (01) | DRG 710 ==
LOC: ED 17:14 → IC 20:50 → DU 20:50 → IC 21:49 → DU 06-15 12:47 → MU 06-17 16:05
PROVIDERS: Emergency Medicine; General Practice; Surgery; ADMIT Family Medicine
PROC: 0U9L0ZZ Drainage of Vestibular Gland, Open Approach (ICD-10-PCS; 2018-06-14)
PROC: 0FT44ZZ Resection of Gallbladder, Percutaneous Endoscopic Approach (ICD-10-PCS; principal; 2018-06-14 11:15)
DX: A41.9 Sepsis, unspecified organism (principal); T88.3XXA Malignant hyperthermia due to anesthesia, initial encounter; K83.09 Other cholangitis; J90 Pleural effusion, not elsewhere classified; E87.2 Acidosis; E83.42 Hypomagnesemia; E83.39 Other disorders of phosphorus metabolism; R18.8 Other ascites; N75.1 Abscess of Bartholin's gland; E83.51 Hypocalcemia; T41.3X5A Adverse effect of local anesthetics, initial encounter; R74.0 Nonspecific elevation of levels of transaminase and lactic acid dehydrogenase [LDH]; Z68.22 Body mass index [BMI] 22.0-22.9, adult; Y84.8 Other medical procedures as the cause of abnormal reaction of the patient, or of later complication, without mention of misadventure at the time of the procedure; Y76.8 Miscellaneous obstetric and gynecological devices associated with adverse incidents, not elsewhere classified; Y92.238 Other place in hospital as the place of occurrence of the external cause
CPT/HCPCS: 36600; 82962; 94150; 97110-GP; 97116-GP; 97530-GP; J1170; J2001; J2060; J2185; J2250; J2270; J2405; J2543; J2704; J2710; J3010; J3370; J3475; J3480; J3490; J7030; J7050; J7120; J8597; Q0092; Q9967

== ENCOUNTER 2018-06-21 17:54 | Emergency (ER) | payer MEDICAID ==
[~2018-06-21] VITALS: Ht 167.6 cm; Wt 59.0 kg
[~2018-06-21 17:54] MED LIST: CIPROFLOXACIN500 MG PO; MOT600 PO
[2018-06-21 18:18] VITALS: BP 105/62; Ht 167.6 cm; Wt 59.0 kg
== END 2018-06-21 19:11 | disposition home or self-care (01) ==
LOC: ED 17:54
DX: R10.2 Pelvic and perineal pain (principal); Z90.49 Acquired absence of other specified parts of digestive tract; Z88.8 Allergy status to other drugs, medicaments and biological substances; Z88.6 Allergy status to analgesic agent; Z98.890 Other specified postprocedural states